=== PATIENT | female | born 1975 | race African-American/Black ===

== ENCOUNTER 2016-08-15 08:52 | Emergency (ER) | payer MEDICAID ==
[~2016-08-15] VITALS: Ht 157.5 cm; Wt 104.3 kg
[~2016-08-15 08:52] MED LIST: LEVAQUIN500 MG ORAL; NITROFURANTOIN100 M2 ORAL; NORCO 5-325 TA1 EACH ORAL; ZOFRAN ODT4 MG ORAL; ZOFRAN4 M3 ORAL; ZOFRAN4 MG ORAL
[2016-08-15] MEDS ORDERED: Neosporin Oint Ud Pkt TOP ONE (09:15)
[2016-08-15] MEDS ORDERED: TdaP Vaccine 0.5ml Syr IM ONE (09:15)
[2016-08-15] MEDS: Norco 5mg/325mg tab PO ONE ×2 (09:15→09:29)
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
--- NOTE | 2016-08-15 11:03 | Diagnostic Imaging Report ---
Indication: Pain Comparison: None Findings: 3 views of the left ankle obtained. No acute fracture, malalignment, periostitis, or osteochondral defects are identified. Tissue swelling is noted. Impression: No acute findings
[2016-08-15] MEDS ORDERED: TRAMADOL HCL50 MG ORAL (11:06)
[2016-08-15] MEDS ORDERED: IBUPROFEN600 MG ORAL (11:06)
[2016-08-15 11:40] VITALS: BP 112/86
== END 2016-08-15 11:44 | disposition home or self-care (01) ==
LOC: EMR 09:57
DX: S93.402A Sprain of unspecified ligament of left ankle, initial encounter (principal); V19.9XXA Pedal cyclist (driver) (passenger) injured in unspecified traffic accident, initial encounter; Y93.9 Activity, unspecified; Y99.9 Unspecified external cause status; J45.909 Unspecified asthma, uncomplicated; K29.70 Gastritis, unspecified, without bleeding; S80.212A Abrasion, left knee, initial encounter; Z91.018 Allergy to other foods
CPT/HCPCS: 90471; 90715; 96372; 99284

== ENCOUNTER 2016-09-22 19:04 | Emergency (ER) | payer MEDICAID ==
[~2016-09-22] VITALS: Ht 149.9 cm; Wt 86.2 kg
[~2016-09-22 19:04] MED LIST changes: +IBUPROFEN600 MG ORAL; +TRAMADOL HCL50 MG ORAL
--- NOTE | 2016-09-22 19:26 | Emergency Room Report ---
History of Present Illness General Chief Complaint: Vomiting Source: Patient Present Illness HPI The patient presents with persistent vomiting since Sunday. She's vomiting everything and denies coffee grounds or blood. She denies any diarrhea. In the past she's had this problem with gastritis. She's not been taking ibuprofen for a long time and it's been over 2 weeks since she was drinking alcohol. She also has epigastric pain that doesn't radiate towards her back. The pain is 8/10 and constant and burning. She does not have any medication at home to help her with this. No fevers, URI sy, cough, rashes. She has a slight HICKEY and feels some dizziness when standing. No dysuria. Denies . Allergies: Coded Allergies: BANANA (Unverified Allergy, Unknown, 10/11/15) Patient History Past Medical History: see triage record Social History: Reports: alcohol use Social History Narrative New job with mental health patients Last Menstrual Period: 09/02/16 Now: No Reviewed Nursing Documentation: PMH: Agreed, PSxH: Agreed Nursing Documentation-PMH Past Medical History: No History, Except For Hx Asthma: Yes Hx Gastrointestinal Problems: Yes - gastritis Review of Systems All Other Systems: negative except mentioned in HPI Physical Exam Vital Signs Date Time Temp Pulse Resp B/P Pulse Ox O2 Delivery O2 Flow Rate FiO2 09/22/16 19:09 98.6 76 16 120/79 100 Room Air Sp02 EP Interpretation: reviewed, normal General Appearance: well appearing, no apparent distress, GCS 15 Head: normocephalic Eyes: bilateral eye PERRL, bilateral eye normal inspection ENT: moist mucus membranes Neck: supple Respiratory: lungs clear, normal breath sounds Cardiovascular #1: regular rate, rhythm Cardiovascular #2: 2+ radial (R) Gastrointestinal: normal inspection, normal bowel sounds, no mass, non- distended, no guarding, tenderness - epigastric Musculoskeletal: back normal, gait/station normal, normal range of motion Neurologic: alert, oriented x3, grossly normal Psychiatric: mood/affect normal Skin: normal inspection, warm/dry Medical Decision Making Diagnostic Impression: Primary Impression: Abdominal pain Qualified Codes: R10.13 - Epigastric pain Additional Impressions: Gastritis Qualified Codes: K29.00 - Acute gastritis without bleeding Hypokalemia Nausea & vomiting Qualified Codes: R11.2 - Nausea with vomiting, unspecified ER Course Patient presents with epigastric pain and vomiting. Differential includes gastritis, GERD, gastroenteritis, cyclic vomiting syndrome, amongst others. We need to exclude electrolyte abnormalities. In addition an EKG needs to be obtained to make sure that she does not have cardiac cause. EKG, labs would be obtained. Based on the physical exam x-rays are not indicated. The patient be treated with IV hydration, Zofran and morphine. In addition she' ll be given Pepcid. Labs: normal WBC and H/H. Slightly low potassium. Urine not given. Kika PO and pain improved with treatment. Patient stable for outpatient observation and treatment. Laboratory Tests Test 09/22/16 19:55 White Blood Count 7.4 K/UL (4.8-10.8) Red Blood Count 4.16 M/UL (4.20-5.40) L Hemoglobin 13.4 G/DL (12.0-16.0) Hematocrit 38.7 % (37.0-47.0) Mean Corpuscular Volume 93 FL (80-99) Mean Corpuscular Hemoglobin 32.3 PG (27.0-31.0) H Mean Corpuscular Hemoglobin Concent 34.7 G/DL (32.0-36.0) Red Cell Distribution Width 11.9 % (11.6-14.8) Platelet Count 373 K/UL (150-450) Mean Platelet Volume 5.4 FL (6.5-10.1) L Neutrophils (%) (Auto) 72.5 % (45.0-75.0) Lymphocytes (%) (Auto) 19.1 % (20.0-45.0) L Monocytes (%) (Auto) 7.5 % (1.0-10.0) Eosinophils (%) (Auto) 0.0 % (0.0-3.0) Basophils (%) (Auto) 1.0 % (0.0-2.0) Sodium Level 134 mEQ/L (135-145) L Potassium Level 3.3 mEQ/L (3.4-4.9) L Chloride Level 91 mEQ/L (98-107) L Carbon Dioxide Level 26 mEQ/L (20-30) Anion Gap 17 (5-15) H Blood Urea Nitrogen 15 mg/dL (7-23) Creatinine 0.8 mg/dL (0.5-0.9) Estimate Glomerular Filtration Rate > 60 mL/min (>60) Glucose Level 99 mg/dL (74-106) Calcium Level 9.5 mg/dL (8.6-10.2) Total Bilirubin 0.4 mg/dL (0.0-1.2) Aspartate Amino Transferase (AST) 12 U/L (5-40) Alanine Aminotransferase (ALT) 7 U/L (3-33) Alkaline Phosphatase 44 U/L (35-104) Total Protein 7.8 g/dL (6.6-8.7) Albumin 4.4 g/dL (3.5-5.2) Globulin 3.4 g/dL Albumin/Globulin Ratio 1.2 (1.0-2.7) Lipase 12 U/L (< 60) EKG Diagnostic Results Rate: normal Rhythm: NSR ST Segments: no acute changes Rhythm Strip Diag. Results EP Interpretation: yes Rhythm: NSR, no PVC's, no ectopy Chest X-Ray Diagnostic Results Chest X-Ray Ordered: No Last Vital Signs Date Time Temp Pulse Resp B/P Pulse Ox O2 Delivery O2 Flow Rate FiO2 09/22/16 23:29 98.1 76 18 117/79 100 Room Air Status: improved Disposition: HOME, SELF-CARE Condition: Improved Scripts Tramadol Hcl* (ULTRAM*) 50 Mg Tablet 50 MG ORAL Q6H Y for For Pain, #6 TAB 0 Refills Prov: Jairo El M.D. 09/22/16 Famotidine (PEPCID) 20 Mg Tablet 20 MG ORAL DAILY, #30 TAB 0 Refills Prov: Jairo El M.D. 09/22/16 Ondansetron Odt* (ZOFRAN ODT*) 4 Mg Tab.rapdis 4 MG ORAL Q6H Y for Nausea & Vomiting, #6 TAB 1 Refill Prov: Jairo El M.D. 09/22/16 Potassium Chloride (KLOR-CON) 20 Meq Packet 20 MEQ ORAL DAILY, #10 PKT 0 Refills Prov: Jairo El M.D. 09/22/16 Jairo El M.D. Sep 22, 2016 19:26
[2016-09-22] MEDS ORDERED: Famotidine 20 MG/ 2ML VIAL IVP ONE (19:30)
[2016-09-22] MEDS ORDERED: Morphine Sulfate 4mg/ml Inj IVP ONE (19:30)
[2016-09-22 20:19] LABS: LYMPHOCYTES % (AUTO) 19.1 % (20.0-45.0); MEAN CORPUSCULAR HEMOGLOBIN 32.3 PG (27.0-31.0); MEAN CORPUSCULAR HGB CONC 34.7 G/DL (32.0-36.0); MEAN CORPUSCULAR VOLUME 93 FL (80-99); MEAN PLATELET VOLUME 5.4 FL (6.5-10.1); MONOCYTES % (AUTO) 7.5 % (1.0-10.0); NEUTROPHILS % (AUTO) 72.5 % (45.0-75.0); PLATELET COUNT 373 K/UL (150-450); RED BLOOD COUNT 4.16 M/UL (4.20-5.40); RED CELL DISTRIBUTION WIDTH 11.9 % (11.6-14.8); WHITE BLOOD COUNT 7.4 K/UL (4.8-10.8)
[2016-09-22 20:29] VITALS: BP 121/75
[2016-09-22 20:30] LABS: ALANINE AMINOTRANSFERASE 7 U/L (3-33); ALBUMIN/GLOBULIN RATIO 1.2 (1.0-2.7); ANION GAP 17 (5-15); ASPARTATE AMINO TRANSFERASE 12 U/L (5-40); CALCIUM 9.5 mg/dL (8.6-10.2); CARBON DIOXIDE 26 mEQ/L (20-30); CHLORIDE 91 mEQ/L (98-107); CREATININE 0.8 mg/dL (0.5-0.9); GLOMERULAR FILTRATION RATE > 60 mL/min (>60); HEMOLYSIS 15; LIPASE 12 U/L (< 60); POTASSIUM 3.3 mEQ/L (3.4-4.9); SODIUM 134 mEQ/L (135-145); TOTAL PROTEIN 7.8 g/dL (6.6-8.7)
[2016-09-22 21:09] VITALS: BP 119/82
[2016-09-22] MEDS ORDERED: KLOR-CON20 MEQ ORAL (22:05)
[2016-09-22] MEDS ORDERED: TRAMADOL HCL50 MG ORAL (22:05)
[2016-09-22] MEDS ORDERED: ZOFRAN ODT4 MG ORAL (22:05)
[2016-09-22] MEDS ORDERED: PEPCID20 MG ORAL (22:05)
[2016-09-22 23:29] VITALS: BP 117/79
--- NOTE | 2016-09-26 18:23 | Cardiology Report ---
APPROVED REPORT EKG Measurement Heart [id number] CT 152P20 [id number] Normal sinus rhythm Low voltage QRS Borderline ECG
== END 2016-09-22 23:30 | disposition home or self-care (01) ==
LOC: EMR 20:10
DX: R10.13 Epigastric pain (principal); K29.00 Acute gastritis without bleeding; R11.2 Nausea with vomiting, unspecified; E87.6 Hypokalemia; R51 Headache; R42 Dizziness and giddiness; Z91.018 Allergy to other foods
CPT/HCPCS: 36415; 80053; 83690; 85025; 93005; 96374; 96375; 99284; J2270; J2405; S0028